=== PATIENT | female | born 2000 | race Caucasian/White ===

== ENCOUNTER 2022-06-06 19:50 | Observation (INO) | payer MEDICAID ==
[~2022-06-06] VITALS: Ht 162.6 cm; Wt 95.7 kg
[2022-06-06] MEDS ORDERED: PREN1COM12 PO (20:32)
== END 2022-06-06 21:35 | disposition home or self-care (01) ==
LOC: 8 EST LDRP 19:50
PROVIDERS: ADMIT Obstetrics & Gynecology; ATTEND Obstetrics & Gynecology
DX: O36.8130 Decreased fetal movements, third trimester, not applicable or unspecified (principal); Z3A.35 35 weeks gestation of pregnancy
CPT/HCPCS: 59025; 76815; 76818; G0378; 99281

== ENCOUNTER 2022-06-08 19:09 | Observation (INO) | payer MEDICAID ==
[~2022-06-08] VITALS: Ht 162.6 cm; Wt 95.7 kg
[~2022-06-08 19:09] MED LIST: PREN1COM12 PO
[2022-06-08] MEDS ORDERED: AMPICILLIN 2,000 MG in SODIUM CHLORIDE 0.9% 100 ML IV SCH (21:00)
== END 2022-06-08 21:19 | disposition home or self-care (01) ==
LOC: 8 EST LDRP 19:09
PROVIDERS: ADMIT Obstetrics & Gynecology; ATTEND Obstetrics & Gynecology
DX: O36.8330 Maternal care for abnormalities of the fetal heart rate or rhythm, third trimester, not applicable or unspecified (principal); Z3A.36 36 weeks gestation of pregnancy
CPT/HCPCS: 59025; 76815; 76818; G0378; 99281; J0290; J7050

== ENCOUNTER 2022-06-11 11:26 | Observation (INO) | payer MEDICAID | END 2022-06-11 13:30 | disposition home or self-care (01) | LOC: 8 EST A/PP 11:26 | PROVIDERS: ADMIT Obstetrics & Gynecology; ATTEND Obstetrics & Gynecology | DX: O36.8330 Maternal care for abnormalities of the fetal heart rate or rhythm, third trimester, not applicable or unspecified (principal); Z3A.36 36 weeks gestation of pregnancy | CPT/HCPCS: 59025; 76815; 76818; G0378; G0379 ==

== ENCOUNTER 2022-06-19 19:15 | Observation (INO) | payer SELFPAY ==
[~2022-06-19] VITALS: Ht 162.6 cm; Wt 95.7 kg
[2022-06-28] MEDS ORDERED: IBUP-2030 PO (02:48)
== END 2022-06-19 22:15 | disposition home or self-care (01) ==
LOC: 8 EST LDRP 19:15
PROVIDERS: ADMIT Obstetrics & Gynecology; ATTEND Obstetrics & Gynecology
DX: O42.92 Full-term premature rupture of membranes, unspecified as to length of time between rupture and onset of labor (principal); O26.893 Other specified pregnancy related conditions, third trimester; R10.30 Lower abdominal pain, unspecified; Z3A.37 37 weeks gestation of pregnancy; Z79.899 Other long term (current) drug therapy
CPT/HCPCS: 59025; 76805; 76818; G0378; G0379; 99281

== ENCOUNTER 2022-06-24 06:56 | Observation (INO) | payer MEDICAID ==
[~2022-06-24] VITALS: Ht 162.6 cm; Wt 99.8 kg
[2022-06-28] MEDS ORDERED: IBUP-2030 PO (02:48)
== END 2022-06-24 10:00 | disposition home or self-care (01) ==
LOC: 8 EST LDRP 06:56
PROVIDERS: ADMIT Obstetrics & Gynecology; ATTEND Obstetrics & Gynecology
DX: O36.8130 Decreased fetal movements, third trimester, not applicable or unspecified (principal); Z3A.38 38 weeks gestation of pregnancy
CPT/HCPCS: 59025; 76805; 76818; G0378; 99281